=== PATIENT | female | born 1940 | race Asian ===

== ENCOUNTER 2016-07-31 10:48 | Emergency (ER) | payer MEDICARE, MEDICAID ==
[~2016-07-31] VITALS: Ht 165.1 cm; Wt 70.0 kg
[~2016-07-31 10:48] MED LIST: ALLO100T PO; AMLO2.5T PO; ANUSHCS PR; CIPR-278 PO; DSS100 PO; METR500 PO; RANO500T3 PO; VALS160T2 PO
[2016-07-31] MEDS ORDERED: AZIT250T6 PO (11:10)
[2016-07-31] MEDS ORDERED: FURO20 PO (11:10)
[2016-07-31] MEDS ORDERED: LOVA20 PO (11:10)
[2016-07-31] MEDS ORDERED: ALBUTEROL SULFATE 5 MG/ML 20 ML NEB SOLN [BULK] NEB ONE (12:15)
[2016-07-31] MEDS ORDERED: IPRATROPIUM BROMIDE 0.5 MG/2.5 ML NEB SOLUTION NEB ONE (12:15)
[2016-07-31 12:59] LABS: BASOPHILS % (AUTO) 0.3 % (0.0-2.0); EOSINOPHILS % (AUTO) 4.4 % (1.0-6.0); HEMATOCRIT 44.4 % (36-46); LYMPHOCYTES # (AUTO) 2.3 K/uL (1.0-4.8); LYMPHOCYTES % (AUTO) 39.1 % (22.0-44.0); MEAN CORPUSCULAR HEMOGLOBIN 29.5 pg (26.0-34.0); MEAN CORPUSCULAR HGB CONC 31.6 G/dL (31.0-37.0); MEAN CORPUSCULAR VOLUME 93 fL (80-100); MONOCYTES # (AUTO) 0.7 K/uL (0.1-1.0); NEUTROPHILS # (AUTO) 2.6 K/uL (1.8-7.7); NEUTROPHILS % (AUTO) 44.2 % (40.0-70.0); PLATELET COUNT (AUTO) 217 K/uL (150-450); RED BLOOD CELL COUNT(AUTO) 4.75 MIL/uL (4.00-5.20); RED CELL DISTRIBUTION WIDTH 14.5 % (11.5-14.5); WHITE BLOOD COUNT (AUTO) 5.8 K/uL (4.5-11.0)
[2016-07-31 13:07] LABS: ANION GAP 10 mmol/L (8-16); CARBON DIOXIDE 25 mmol/L (22-29); CHLORIDE 101 mmol/L (98-107); CREATININE 0.91 mg/dL (0.60-1.30); GLOMERULAR FILTR. RATE CALC 60 mL/min (>60); POTASSIUM 4.7 mmol/L (3.5-5.1); SODIUM SERUM 136 mmol/L (136-145); UREA NITROGEN, BLOOD 13 mg/dL (7-18)
[2016-07-31 13:29] LABS: B-TYPE NATRIURETIC PEPTIDE 35 pg/mL (0-100)
[2016-07-31 13:31] LABS: ALANINE AMINOTRANSFERASE 30 U/L (12-78); ALBUMIN 4.1 g/dL (3.4-5.0); ASPARTATE AMINOTRANSFERASE 31 U/L (15-37); BILIRUBIN,TOTAL 0.3 mg/dL (0.1-1.0); CREATINE KINASE, TOTAL 149 U/L (26-192); TOTAL PROTEIN, SERUM 8.3 g/dL (6.4-8.2)
[2016-07-31 13:32] LABS: INFLUENZA TYPE B NEGATIVE FOR TYPE B (NEGATIVE)
[2016-07-31 14:15] VITALS: BP 131/76
== END 2016-07-31 14:18 | disposition home or self-care (01) ==
LOC: EMS 10:49
DX: J06.9 Acute upper respiratory infection, unspecified (principal); J40 Bronchitis, not specified as acute or chronic; I25.10 Atherosclerotic heart disease of native coronary artery without angina pectoris; I11.9 Hypertensive heart disease without heart failure
CPT/HCPCS: 71020; 87804; 93005; 94640; 99285

== ENCOUNTER 2017-03-26 22:13 | Emergency (ER) | payer MEDICARE, MEDICAID ==
[~2017-03-26] VITALS: Ht 162.6 cm; Wt 75.9 kg
[~2017-03-26 22:13] MED LIST changes: -ALLO100T PO; -ANUSHCS PR; +AZIT250T9 PO; -CIPR-278 PO; -DSS100 PO; +FURO20 PO; +LOVA20 PO; -METR500 PO
[2017-03-26] MEDS ORDERED: AZIL1TAB3 PO (22:21)
[2017-03-26 22:59] LABS: BASOPHILS # (AUTO) 0.03 K/uL (0.00-0.20); BASOPHILS % (AUTO) 0.3 % (0.0-2.0); EOSINOPHILS # (AUTO) 0.09 K/uL (0.00-0.70); EOSINOPHILS % (AUTO) 0.95 % (1.0-6.0); HEMATOCRIT 41.7 % (36-46); HEMOGLOBIN 13.9 g/dL (12.0-16.0); LYMPHOCYTES # (AUTO) 2.2 K/uL (1.0-4.8); LYMPHOCYTES % (AUTO) 23.9 % (22.0-44.0); MEAN CORPUSCULAR HEMOGLOBIN 31.3 pg (26.0-34.0); MEAN CORPUSCULAR HGB CONC 33.4 G/dL (31.0-37.0); MEAN CORPUSCULAR VOLUME 94 fL (80-100); MONOCYTES % (AUTO) 11.2 % (2.0-9.0); NEUTROPHILS # (AUTO) 5.9 K/uL (1.8-7.7); NEUTROPHILS % (AUTO) 63.7 % (40.0-70.0); PLATELET COUNT (AUTO) 219 K/uL (150-450); RED BLOOD CELL COUNT(AUTO) 4.45 MIL/uL (4.00-5.20); RED CELL DISTRIBUTION WIDTH 14.6 % (11.5-14.5); WHITE BLOOD COUNT (AUTO) 9.3 K/uL (4.5-11.0)
[2017-03-26 23:06] LABS: APPEARANCE,URINE CLEAR (CLEAR); GLUCOSE, URINE (UA) NEGATIVE (NEGATIVE); KETONES,URINE NEGATIVE (NEGATIVE); LEUKOCYTE ESTERASE ,URINE TRACE (NEGATIVE); OCCULT BLOOD,URINE TRACE (NEGATIVE); PH,URINE 6.5 (5.0-8.0); PROTEIN,URINE NEGATIVE (NEGATIVE)
[2017-03-26 23:08] LABS: ADD UA MICROSCOPIC YES
[2017-03-26 23:17] LABS: SQUAMOUS EPITHELIAL CELL,UR Few /LPF (None Seen)
[2017-03-26 23:29] LABS: ALBUMIN 4.3 g/dL (3.4-5.0); BILIRUBIN,TOTAL 0.6 mg/dL (0.1-1.0); CALCIUM, TOTAL 9.2 mg/dL (8.8-10.5); CREATININE 1.09 mg/dL (0.60-1.30); POTASSIUM 3.8 mmol/L (3.5-5.1); TOTAL PROTEIN, SERUM 8.4 g/dL (6.4-8.2)
[2017-03-26] MEDS ORDERED: DONNATAL/LIDOCAINE/MAALOX 55 ML BOTTLE PO ONE (23:30)
[2017-03-27] MEDS ORDERED: SODIUM CHLORIDE 0.9% 1,000 ML IV ONE (01:00)
[2017-03-27] MEDS ORDERED: ONDANSETRON HCL 4 MG/2 ML VIAL IVP ONE (01:00)
[2017-03-27 02:27] VITALS: BP 154/74
== END 2017-03-27 02:42 | disposition home or self-care (01) ==
LOC: EMS 22:15
DX: K85.90 Acute pancreatitis without necrosis or infection, unspecified (principal); I25.10 Atherosclerotic heart disease of native coronary artery without angina pectoris; I10 Essential (primary) hypertension
CPT/HCPCS: 36415; 80053; 81001; 83690; 84484; 85025; 93005; 96374; 99285; J2405; J7030

== ENCOUNTER 2018-11-26 10:19 | Inpatient (IN) | payer MEDICARE, MEDICAID ==
[~2018-11-26] VITALS: Ht 162.6 cm; Wt 76.8 kg
[~2018-11-26 10:19] MED LIST changes: +ALLO100T PO; -AMLO2.5T PO; +AMLO2.5T4 PO; +AZIL1TAB3 PO; -AZIT250T9 PO; -FURO20 PO; -VALS160T2 PO
[2018-11-26] MEDS ORDERED: SODIUM CHLORIDE 0.9% 1,000 ML IV ONE ×3 (11:15→14:15)
[2018-11-26] MEDS ORDERED: ONDANSETRON HCL 4 MG/2 ML VIAL IVP ONE (11:15)
[2018-11-26 11:42] LABS: BASOPHILS % (AUTO) 0.2 % (0.0-2.0); EOSINOPHILS % (AUTO) 0 % (1.0-6.0); HEMATOCRIT 41.9 % (36-46); HEMOGLOBIN 13.5 g/dL (12.0-16.0); LYMPHOCYTES # (AUTO) 1.1 K/uL (1.0-4.8); LYMPHOCYTES % (AUTO) 12.3 % (22.0-44.0); MEAN CORPUSCULAR HEMOGLOBIN 30.8 pg (26.0-34.0); MEAN CORPUSCULAR HGB CONC 32.2 G/dL (31.0-37.0); MEAN CORPUSCULAR VOLUME 96 fL (80-100); MONOCYTES # (AUTO) 0.3 K/uL (0.1-1.0); MONOCYTES % (AUTO) 3.2 % (2.0-9.0); NEUTROPHILS # (AUTO) 7.5 K/uL (1.8-7.7); NEUTROPHILS % (AUTO) 84.3 % (40.0-70.0); PLATELET COUNT (AUTO) 169 K/uL (150-450); RED BLOOD CELL COUNT(AUTO) 4.37 MIL/uL (4.00-5.20)
[2018-11-26 12:00] LABS: CALCIUM, TOTAL 9.1 mg/dL (8.8-10.5); CREATININE 1.21 mg/dL (0.60-1.30); POTASSIUM 4.2 mmol/L (3.5-5.1)
[2018-11-26 12:03] LABS: ALBUMIN 4.1 g/dL (3.4-5.0); BILIRUBIN,TOTAL 0.5 mg/dL (0.1-1.0); TOTAL PROTEIN, SERUM 7.5 g/dL (6.4-8.2)
[2018-11-26 12:43] LABS: APPEARANCE,URINE CLEAR (CLEAR); BILIRUBIN,URINE NEGATIVE (NEGATIVE); GLUCOSE, URINE (UA) NEGATIVE (NEGATIVE); KETONES,URINE NEGATIVE (NEGATIVE); LEUKOCYTE ESTERASE ,URINE NEGATIVE (NEGATIVE); NITRATE,URINE NEGATIVE (NEGATIVE); OCCULT BLOOD,URINE NEGATIVE (NEGATIVE); PH,URINE 6.5 (5.0-8.0); PROTEIN,URINE NEGATIVE (NEGATIVE); UROBILINOGEN,URINE 0.2 mg/dL (<=1.0)
[2018-11-26] MEDS ORDERED: KETOROLAC TROMETHAMINE 30 MG/ML VIAL IVP ONE (13:30)
[2018-11-26] MEDS ORDERED: ACETAMINOPHEN 325 MG TABLET PO PRN (14:15)
[2018-11-26] MEDS: AmLODIPine BESYLATE 5 MG TABLET PO SCH (15:12)
[2018-11-26] MEDS ORDERED: HEPARIN SODIUM,PORCINE 5,000 UNITS/ML VIAL SQ SCH (16:00)
[2018-11-26 20:35] VITALS: BP 150/74
[2018-11-27] VITALS (7 sets, daily range): BP systolic 125–159; BP diastolic 53–75
[2018-11-27 06:51] LABS: BASOPHILS % (AUTO) 0.2 % (0.0-2.0); EOSINOPHILS % (AUTO) 0.8 % (1.0-6.0); HEMATOCRIT 38.2 % (36-46); HEMOGLOBIN 12.6 g/dL (12.0-16.0); LYMPHOCYTES # (AUTO) 1.5 K/uL (1.0-4.8); LYMPHOCYTES % (AUTO) 16.8 % (22.0-44.0); MEAN CORPUSCULAR HEMOGLOBIN 31.3 pg (26.0-34.0); MEAN CORPUSCULAR HGB CONC 32.9 G/dL (31.0-37.0); MEAN CORPUSCULAR VOLUME 95 fL (80-100); MONOCYTES # (AUTO) 0.9 K/uL (0.1-1.0); MONOCYTES % (AUTO) 9.8 % (2.0-9.0); NEUTROPHILS # (AUTO) 6.5 K/uL (1.8-7.7); NEUTROPHILS % (AUTO) 72.4 % (40.0-70.0); PLATELET COUNT (AUTO) 165 K/uL (150-450); RED BLOOD CELL COUNT(AUTO) 4.02 MIL/uL (4.00-5.20); RED CELL DISTRIBUTION WIDTH 13.7 % (11.5-14.5)
[2018-11-27 07:28] LABS: ALBUMIN 3.5 g/dL (3.4-5.0); BILIRUBIN,TOTAL 0.6 mg/dL (0.1-1.0); CALCIUM, TOTAL 8.3 mg/dL (8.8-10.5); CREATININE 0.94 mg/dL (0.60-1.30); POTASSIUM 3.4 mmol/L (3.5-5.1); TOTAL PROTEIN, SERUM 6.6 g/dL (6.4-8.2)
[2018-11-27] MEDS ORDERED: ASPIRIN 81 MG CHEWABLE TABLET PO SCH (09:00)
[2018-11-27] MEDS: FAMOTIDINE 20 MG TABLET PO SCH (09:52)
[2018-11-27] MEDS: AmLODIPine BESYLATE 5 MG TABLET PO SCH (09:53)
[2018-11-27] MEDS ORDERED: MAGNESIUM SULFATE 2 GM/WATER 50 ML IV PRN (10:30)
[2018-11-27] MEDS ORDERED: POTASSIUM CHLORIDE 10% 40 MEQ/30 ML LIQUID UDCUP PO ONE (10:30)
[2018-11-27] MEDS ORDERED: MAGNESIUM SULFATE 4 GM/WATER 100 ML IV PRN (10:30)
[2018-11-27] MEDS ORDERED: MAGNESIUM OXIDE 400 MG TABLET PO PRN (10:30)
[2018-11-27] MEDS ORDERED: PEG 3350/NA SULF,BICARB,CL/KCL 4000 ML SOLUTION PO ONE (11:00)
[2018-11-27 15:59] LABS: HEMATOCRIT 38.8 % (36-46); HEMOGLOBIN 12.6 g/dL (12.0-16.0)
[2018-11-27 18:28] LABS: C.DIFF GDH ANTIGEN, Stool Negative (Negative)
[2018-11-27 18:29] LABS: C.DIFF TOXINS A&B, Stool Negative (Negative)
[2018-11-28 04:55] VITALS: BP 113/58
[2018-11-28] MEDS: AmLODIPine BESYLATE 5 MG TABLET PO SCH (09:00)
[2018-11-28] MEDS: FAMOTIDINE 20 MG TABLET PO SCH (09:00)
[2018-11-28] MEDS ORDERED: EPINEPHrine 1:10,000 [1 MG/10 ML] SYRINGE ONE (09:11)
[2018-11-28] MEDS ORDERED: SODIUM CHLORIDE 0.9% 1,000 ML IV ONE ×2 (09:12→09:13)
[2018-11-28 11:59] VITALS: BP 123/71
[2018-11-28] MEDS ORDERED: LIDOCAINE/PF 2% 5 ML VIAL INJ ONE (12:00)
[2018-11-28] MEDS ORDERED: GLYCOPYRROLATE 0.2 MG/ML VIAL IM ONE (12:00)
[2018-11-28] MEDS ORDERED: PROPOFOL 1% 20 ML VIAL IVP ONE (12:00)
[2018-11-28 16:18] VITALS: BP 111/45
[2018-11-28] MEDS ORDERED: FAMO20 PO (17:17)
[2018-12-01 00:05] LABS: OVA AND PARASITES EXAM Final report
== END 2018-11-28 18:25 | disposition home or self-care (01) | DRG 378 ==
LOC: EMS 10:19 → 5S 19:58
PROVIDERS: ADMIT Internal Medicine; ATTEND Internal Medicine
PROC: 0DBL8ZX Excision of Transverse Colon, Via Natural or Artificial Opening Endoscopic, Diagnostic (ICD-10-PCS; principal; 2018-11-28 10:00)
DX: K62.5 Hemorrhage of anus and rectum (principal); K55.9 Vascular disorder of intestine, unspecified; K52.9 Noninfective gastroenteritis and colitis, unspecified; I25.10 Atherosclerotic heart disease of native coronary artery without angina pectoris; E78.5 Hyperlipidemia, unspecified; I10 Essential (primary) hypertension; E78.00 Pure hypercholesterolemia, unspecified; M19.90 Unspecified osteoarthritis, unspecified site; M10.9 Gout, unspecified; E86.0 Dehydration; E87.6 Hypokalemia; I49.8 Other specified cardiac arrhythmias; N28.1 Cyst of kidney, acquired; K76.89 Other specified diseases of liver; K76.0 Fatty (change of) liver, not elsewhere classified; K80.20 Calculus of gallbladder without cholecystitis without obstruction; Z82.49 Family history of ischemic heart disease and other diseases of the circulatory system; Z98.891 History of uterine scar from previous surgery; Z79.82 Long term (current) use of aspirin
CPT/HCPCS: 74176; 83735; 85014; 85018; 87045; 87177; 87324; 87449; 88305; 93005; J0171; J1885; J2405; J2704; J3490; J7030

== ENCOUNTER 2019-04-23 16:56 | Emergency (ER) | payer MEDICARE, MEDICAID ==
[~2019-04-23] VITALS: Ht 165.1 cm; Wt 90.9 kg
[~2019-04-23 16:56] MED LIST changes: +FAMO20 PO
[2019-04-23 17:21] LABS: GLUCOSE,POINT OF CARE 98 MG/DL (70-110)
[2019-04-23] MEDS ORDERED: IOVERSOL 320 MG/ML 100 ML VIAL ONE (18:16)
[2019-04-23] MEDS ORDERED: SODIUM CHLORIDE 0.9% 0 ML ONE (18:16)
[2019-04-23 18:32] LABS: BASOPHILS % (AUTO) 0.6 % (0.0-2.0); EOSINOPHILS % (AUTO) 1.2 % (1.0-6.0); HEMATOCRIT 38.6 % (36-46); LYMPHOCYTES % (AUTO) 21.2 % (22.0-44.0); MEAN CORPUSCULAR HEMOGLOBIN 31.8 pg (26.0-34.0); MEAN CORPUSCULAR HGB CONC 33.8 G/dL (31.0-37.0); MEAN CORPUSCULAR VOLUME 94 fL (80-100); MONOCYTES # (AUTO) 0.9 K/uL (0.1-1.0); MONOCYTES % (AUTO) 9.4 % (2.0-9.0); NEUTROPHILS # (AUTO) 6.4 K/uL (1.8-7.7); NEUTROPHILS % (AUTO) 67.6 % (40.0-70.0); PLATELET COUNT (AUTO) 221 K/uL (150-450); RED CELL DISTRIBUTION WIDTH 14.4 % (11.5-14.5)
[2019-04-23 18:49] LABS: CALCIUM, TOTAL 9.1 mg/dL (8.8-10.5); CREATININE 0.98 mg/dL (0.60-1.30); POTASSIUM 4.6 mmol/L (3.5-5.1)
[2019-04-23 18:55] LABS: ALBUMIN 4.2 g/dL (3.4-5.0); BILIRUBIN,TOTAL 0.4 mg/dL (0.1-1.0); TOTAL PROTEIN, SERUM 8.1 g/dL (6.4-8.2)
[2019-04-23] MEDS ORDERED: AMOX TR/POT CLAV 875 MG/125 MG TABLET PO ONE (22:30)
[2019-04-23 22:40] VITALS: BP 139/84
== END 2019-04-23 22:54 | disposition home or self-care (01) ==
LOC: EMS 16:57
DX: K11.20 Sialoadenitis, unspecified (principal); E78.00 Pure hypercholesterolemia, unspecified; I10 Essential (primary) hypertension; I25.10 Atherosclerotic heart disease of native coronary artery without angina pectoris; M19.90 Unspecified osteoarthritis, unspecified site; Z79.899 Other long term (current) drug therapy
CPT/HCPCS: 70490; J7050

== ENCOUNTER 2023-05-10 08:12 | Emergency (ER) | payer MEDICARE, MEDICAID ==
[~2023-05-10] VITALS: Ht 160 cm; Wt 68.2 kg
[~2023-05-10 08:12] MED LIST changes: +ALLO-97 PO; -ALLO100T PO; -AMLO2.5T4 PO; +AMLO2.5T96 PO; -LOVA20 PO; +LOVA20TA73 PO; +RANO500T27 PO; -RANO500T3 PO
[2023-05-10 08:20] VITALS: BP 154/66; PULSE 83; RESP 18; TEMP 98.3
[2023-05-10] MEDS ORDERED: LOSA100T59 PO (08:23)
[2023-05-10] MEDS ORDERED: METF-1211 PO (08:23)
[2023-05-10] MEDS ORDERED: HYDR25TA PO (08:23)
[2023-05-10] MEDS ORDERED: PRAV40TA4 PO (08:23)
[2023-05-10 09:06] LABS: COVID AG,FIA SOURCE NASAL SWAB
[2023-05-10 09:29] LABS: INFLUENZA TYPE A NEGATIVE FOR TYPE A (NEGATIVE); INFLUENZA TYPE B NEGATIVE FOR TYPE B (NEGATIVE)
[2023-05-10 09:30] LABS: RESPIRATORY SYNCYTIAL VIRS,FIA POSITIVE (Negative)
[2023-05-10 09:36] LABS: SARS-COV2 (COVID) ANTIGEN,FIA Positive (Negative)
[2023-05-10] MEDS ORDERED: NIRM1TAB10 PO (10:36)
== END 2023-05-10 10:49 | disposition home or self-care (01) ==
LOC: EMS 08:12
DX: U07.1 COVID-19 (principal); B97.4 Respiratory syncytial virus as the cause of diseases classified elsewhere; M19.90 Unspecified osteoarthritis, unspecified site; E11.9 Type 2 diabetes mellitus without complications; E78.00 Pure hypercholesterolemia, unspecified; I25.10 Atherosclerotic heart disease of native coronary artery without angina pectoris; I10 Essential (primary) hypertension; Z98.890 Other specified postprocedural states
CPT/HCPCS: 71045; 82962; 87420; 87804; 99284

== ENCOUNTER 2024-01-26 08:04 | Emergency (ER) | payer MEDICARE, MEDICAID ==
[~2024-01-26] VITALS: Ht 165.1 cm; Wt 72.7 kg
[~2024-01-26 08:04] MED LIST changes: -AZIL1TAB3 PO; -FAMO20 PO; +HYDR25TA PO; +LOSA100T59 PO; -LOVA20TA73 PO; +METF-1211 PO; +NIRM1TAB10 PO; +PRAV40TA4 PO; -RANO500T27 PO
[2024-01-26] MEDS ORDERED: ALLO100T PO (08:09)
[2024-01-26] MEDS ORDERED: AMLO10TA55 PO (08:09)
[2024-01-26 09:27] VITALS: TEMP 99.1
[2024-01-26] MEDS ORDERED: IBUP-1492 PO (09:29)
[2024-01-26] MEDS ORDERED: CYCL-448 PO (09:29)
[2024-01-26 09:30] VITALS: BP 154/70; PULSE 68; RESP 16; O2SAT 97
[2024-01-26] MEDS: LIDOCAINE 5% TRANSDERMAL PATCH TD ONE (09:33)
[2024-01-26] MEDS: KETOROLAC TROMETHAMINE 30 MG/ML VIAL IM ONE (09:34)
== END 2024-01-26 09:45 | disposition home or self-care (01) ==
LOC: EMS 08:04
DX: M54.42 Lumbago with sciatica, left side (principal); E11.42 Type 2 diabetes mellitus with diabetic polyneuropathy; I10 Essential (primary) hypertension; E78.00 Pure hypercholesterolemia, unspecified; Z79.899 Other long term (current) drug therapy
CPT/HCPCS: 99283; 82962; 96372; J1885

== ENCOUNTER 2024-03-24 10:56 | Inpatient (IN) | payer MEDICARE, MEDICAID ==
[~2024-03-24] VITALS: Ht 162.6 cm; Wt 71.2 kg
[~2024-03-24 10:56] MED LIST changes: -ALLO-97 PO; +ALLO100T PO; +AMLO10TA55 PO; -AMLO2.5T96 PO; +CYCL-448 PO; +IBUP-1492 PO; -NIRM1TAB10 PO
[2024-03-24 11:29] LABS: COVID AG,FIA SOURCE NASAL SWAB
[2024-03-24 12:41] LABS: SARS-COV2 (COVID) ANTIGEN,FIA Negative (Negative)
[2024-03-24 12:42] LABS: INFLUENZA TYPE A NEGATIVE FOR TYPE A (NEGATIVE); INFLUENZA TYPE B NEGATIVE FOR TYPE B (NEGATIVE)
[2024-03-24] MEDS: ACETAMINOPHEN 500 MG TABLET PO ONE (14:36)
[2024-03-24] MEDS: ASPIRIN 325 MG TABLET PO ONE (14:37)
[2024-03-24 14:39] LABS: APPEARANCE,URINE CLEAR (CLEAR); BILIRUBIN,URINE NEGATIVE (NEGATIVE); COLOR,URINE LIGHT YELLOW (YELLOW); GLUCOSE, URINE (UA) NEGATIVE (NEGATIVE); KETONES,URINE NEGATIVE (NEGATIVE); LEUKOCYTE ESTERASE ,URINE SMALL (NEGATIVE); NITRATE,URINE NEGATIVE (NEGATIVE); OCCULT BLOOD,URINE NEGATIVE (NEGATIVE); PH,URINE 6.5 (5.0-8.0); PROTEIN,URINE NEGATIVE (NEGATIVE); SPECIFIC GRAVITIY, URINE 1.015 (1.003-1.030); UROBILINOGEN,URINE <=1.0 mg/dL (<=1.0)
[2024-03-24] MEDS: MethylPREDNISolone SOD SUCC 125 MG/2 ML VIAL IVP ONE (14:39)
[2024-03-24 14:53] LABS: RBC,URINE None Seen /HPF (0-2)
[2024-03-24 14:54] LABS: BACTERIA,URINE None Seen /HPF (None Seen); SQUAMOUS EPITHELIAL CELL,UR Rare /LPF (None Seen)
[2024-03-24] MEDS: IPRATROPIUM BROMIDE 0.5 MG/2.5 ML NEB SOLUTION NEB ONE (14:59)
[2024-03-24] MEDS: ALBUTEROL SULFATE 2.5 MG/0.5 ML NEB SOLUTION NEB ONE (14:59)
[2024-03-24 15:05] VITALS: PULSE 64; PULSE 65; RESP 16; O2SAT 99
[2024-03-24 15:22] VITALS: PULSE 58; RESP 17; O2SAT 100
[2024-03-24 15:29] LABS: BASOPHILS % (AUTO) 0.7 % (0.0-2.0); EOSINOPHILS % (AUTO) 0.9 % (1.0-6.0); HEMATOCRIT 38.9 % (36-46); HEMOGLOBIN 12.8 g/dL (12.0-16.0); LYMPHOCYTES # (AUTO) 2.5 K/uL (1.0-4.8); LYMPHOCYTES % (AUTO) 26.3 % (22.0-44.0); MEAN CORPUSCULAR HEMOGLOBIN 30.7 pg (26.0-34.0); MEAN CORPUSCULAR HGB CONC 32.8 G/dL (31.0-37.0); MEAN CORPUSCULAR VOLUME 94 fL (80-100); NEUTROPHILS # (AUTO) 5.9 K/uL (1.8-7.7); NEUTROPHILS % (AUTO) 62.1 % (40.0-70.0); PLATELET COUNT (AUTO) 219 K/uL (150-450); RED BLOOD CELL COUNT(AUTO) 4.15 MIL/uL (4.00-5.20); RED CELL DISTRIBUTION WIDTH 13.8 % (11.5-14.5); WHITE BLOOD COUNT (AUTO) 9.6 K/uL (4.5-11.0)
[2024-03-24 15:37] LABS: ANION GAP 6 mmol/L (8-16); CALCIUM, TOTAL 9.1 mg/dL (8.8-10.5); CARBON DIOXIDE 30 mmol/L (22-29); CHLORIDE 102 mmol/L (98-107); CREATININE 1.21 mg/dL (0.60-1.30); GLOMERULAR FILTR. RATE CALC 42 mL/min (>60); GLUCOSE,RANDOM 104 mg/dL (70-110); POTASSIUM 3.7 mmol/L (3.5-5.1); SODIUM SERUM 138 mmol/L (136-145); UREA NITROGEN, BLOOD 36 mg/dL (7-18)
[2024-03-24 15:38] LABS: LIPASE 68 U/L (16-77)
[2024-03-24 15:45] LABS: TROPONIN I-HIGH SENSITIVITY 21 ng/L (<51)
[2024-03-24 15:48] LABS: B-TYPE NATRIURETIC PEPTIDE 108 pg/mL (0-100); LACTIC ACID 1.2 mmol/L (0.4-2.0)
[2024-03-24] MEDS: AmLODIPine BESYLATE 10 MG TABLET PO ONE (17:02)
[2024-03-24 18:13] VITALS: BP 147/68; PULSE 78; RESP 18; TEMP 98; O2SAT 97
[2024-03-24 19:43] VITALS: BP 148/78; PULSE 79; RESP 18; TEMP 98.5; O2SAT 100
[2024-03-25] VITALS (9 sets, daily range): BP systolic 127–153; BP diastolic 53–77; PULSE 61–78; RESP 17–20; TEMP 97.5–98.1; O2SAT 95–98
[2024-03-25] MEDS ORDERED: INSULIN LISPRO 100 UNITS/ML SQ PRN (00:15)
[2024-03-25] MEDS ORDERED: DEXTROSE 50%-WATER 25 GM/50 ML SYRINGE IVP PRN ×2 (00:15→04:30)
[2024-03-25] MEDS: ALBUTEROL SULFATE 2.5 MG/0.5 ML NEB SOLUTION NEB PRN (01:04)
[2024-03-25] MEDS: IPRATROPIUM BROMIDE 0.5 MG/2.5 ML NEB SOLUTION NEB PRN (01:05)
[2024-03-25 01:12] LABS: TROPONIN I-HIGH SENSITIVITY 17 ng/L (<51)
[2024-03-25] MEDS: BENZONATATE 100 MG CAPSULE PO PRN (01:27)
[2024-03-25] MEDS: MELATONIN 3 MG TABLET PO ONE (01:27)
[2024-03-25] MEDS ORDERED: MAGNESIUM HYDROXIDE SUSPENSION 30 ML UDCUP PO PRN (04:30)
[2024-03-25] MEDS ORDERED: IBUPROFEN 600 MG TABLET PO PRN (04:30)
[2024-03-25] MEDS ORDERED: ONDANSETRON HCL 4 MG/2 ML VIAL IVP PRN (04:30)
[2024-03-25] MEDS ORDERED: IPRATROPIUM BROMIDE 0.5 MG/2.5 ML NEB SOLUTION NEB PRN (04:30)
[2024-03-25] MEDS ORDERED: ZOLPIDEM TARTRATE 5 MG TABLET PO PRN (04:30)
[2024-03-25] MEDS ORDERED: ALBUTEROL SULFATE 2.5 MG/0.5 ML NEB SOLUTION NEB PRN (04:30)
[2024-03-25] MEDS ORDERED: BISACODYL 10 MG RECTAL RECTAL SUPPOSITORY PR PRN (04:30)
[2024-03-25] MEDS ORDERED: MORPHINE SULFATE 2 MG/ML SYRINGE IVP PRN (04:30)
[2024-03-25] MEDS ORDERED: CYCLOBENZAPRINE HCL 10 MG TABLET PO PRN (04:30)
[2024-03-25] MEDS ORDERED: HYDROCODONE/ACETAMINOPHEN 5-325 MG TABLET PO PRN (04:30)
[2024-03-25] MEDS ORDERED: SODIUM CHLORIDE 0.9% 500 ML IV ONE (06:17)
[2024-03-25] MEDS: CefTRIAXone 1 GM/DEXTROSE 50 ML IV SCH (06:30)
[2024-03-25] MEDS: INSULIN LISPRO 100 UNITS/ML SQ PRN (06:37)
[2024-03-25] MEDS: PANTOPRAZOLE SODIUM 40 MG DR TABLET PO SCH (08:23)
[2024-03-25] MEDS: ALLOPURINOL 100 MG TABLET PO SCH (08:27)
[2024-03-25] MEDS: HYDROCHLOROTHIAZIDE 25 MG TABLET PO SCH (08:28)
[2024-03-25] MEDS: HEPARIN SODIUM,PORCINE 5,000 UNITS/ML VIAL SQ SCH (08:28)
[2024-03-25] MEDS: MetFORMIN HCL 500 MG TABLET PO SCH (08:28)
[2024-03-25] MEDS: LOSARTAN POTASSIUM 50 MG TABLET PO SCH (08:28)
[2024-03-25] MEDS: AmLODIPine BESYLATE 10 MG TABLET PO SCH (08:28)
[2024-03-25] MEDS ORDERED: BENZONATATE 100 MG CAPSULE PO PRN (12:15)
[2024-03-25] MEDS: AZITHROMYCIN 500 MG/NS 250 ML IV SCH (13:21)
[2024-03-25] MEDS: ALBUTEROL SULFATE 2.5 MG/0.5 ML NEB SOLUTION NEB SCH (14:00)
[2024-03-25] MEDS: ACETAMINOPHEN 325 MG TABLET PO PRN (14:12)
[2024-03-25] MEDS ORDERED: 0.9% SODIUM CHLORIDE 5 ML NEB SOLUTION NEB ONE (19:40)
[2024-03-25] MEDS: PRAVASTATIN SODIUM 40 MG TABLET PO SCH (19:55)
[2024-03-25] MEDS: MELATONIN 3 MG TABLET PO SCH (19:56)
[2024-03-25 23:47] LABS: GLUCOMETER DEV NAME(LOC) 5S.2D; GLUCOSE,POINT OF CARE 102 MG/DL (70-110)
[2024-03-25 23:47] LABS: GLUCOMETER DEV NAME(LOC) 5N.2C; GLUCOSE,POINT OF CARE 271 MG/DL (70-110)
[2024-03-25 23:47] LABS: GLUCOMETER DEV NAME(LOC) 5S.2D; GLUCOSE,POINT OF CARE 163 MG/DL (70-110)
[2024-03-26] VITALS (13 sets, daily range): BP systolic 128–160; BP diastolic 54–80; PULSE 59–86; RESP 16–20; TEMP 97.4–98.1; O2SAT 94–100
[2024-03-26 01:16] LABS: GLUCOMETER DEV NAME(LOC) 5N.1D; GLUCOSE,POINT OF CARE 172 MG/DL (70-110)
[2024-03-26 01:16] LABS: GLUCOMETER DEV NAME(LOC) 5N.1D; GLUCOSE,POINT OF CARE 177 MG/DL (70-110)
[2024-03-26 06:24] LABS: BASOPHILS % (AUTO) 0.2 % (0.0-2.0); EOSINOPHILS % (AUTO) 0 % (1.0-6.0); HEMATOCRIT 34.7 % (36-46); HEMOGLOBIN 11.6 g/dL (12.0-16.0); LYMPHOCYTES # (AUTO) 2.1 K/uL (1.0-4.8); LYMPHOCYTES % (AUTO) 12.9 % (22.0-44.0); MEAN CORPUSCULAR HEMOGLOBIN 30.8 pg (26.0-34.0); MEAN CORPUSCULAR HGB CONC 33.4 G/dL (31.0-37.0); MEAN CORPUSCULAR VOLUME 92 fL (80-100); MONOCYTES # (AUTO) 1.3 K/uL (0.1-1.0); MONOCYTES % (AUTO) 7.9 % (2.0-9.0); NEUTROPHILS # (AUTO) 12.9 K/uL (1.8-7.7); PLATELET COUNT (AUTO) 213 K/uL (150-450); RED BLOOD CELL COUNT(AUTO) 3.76 MIL/uL (4.00-5.20); RED CELL DISTRIBUTION WIDTH 13.7 % (11.5-14.5); WHITE BLOOD COUNT (AUTO) 16.3 K/uL (4.5-11.0)
[2024-03-26 06:46] LABS: CALCIUM, TOTAL 8.7 mg/dL (8.8-10.5); CREATININE 1.33 mg/dL (0.60-1.30); POTASSIUM 3.7 mmol/L (3.5-5.1)
[2024-03-26 06:58] LABS: MAGNESIUM 2.4 mg/dL (1.80-2.40)
[2024-03-27 02:33] VITALS: BP 133/66; PULSE 60; RESP 16; TEMP 97.6; O2SAT 96
[2024-03-27 03:06] VITALS: BP 154/61; PULSE 62; RESP 18; TEMP 98.1; O2SAT 97
[2024-03-27 04:26] LABS: GLUCOMETER DEV NAME(LOC) 5N.2C; GLUCOSE,POINT OF CARE 106 MG/DL (70-110)
[2024-03-27 04:26] LABS: GLUCOMETER DEV NAME(LOC) 5S.2D; GLUCOSE,POINT OF CARE 115 MG/DL (70-110)
[2024-03-27 04:26] LABS: GLUCOMETER DEV NAME(LOC) 5S.2D; GLUCOSE,POINT OF CARE 85 MG/DL (70-110)
[2024-03-27 04:30] LABS: GLUCOMETER DEV NAME(LOC) 5S.1D; GLUCOSE,POINT OF CARE 146 MG/DL (70-110)
[2024-03-27] MEDS ORDERED: SODIUM CHLORIDE 0.9% 500 ML IV ONE (06:00)
[2024-03-27 08:58] VITALS: BP 154/75; PULSE 59; RESP 18; TEMP 98.3; O2SAT 99
[2024-03-27] MEDS ORDERED: CEFD300C18 PO (09:22)
[2024-03-27] MEDS ORDERED: AZIT-164 PO (09:22)
[2024-03-27] MEDS ORDERED: BENZ-227 PO (09:23)
[2024-03-27] MEDS ORDERED: LOSA-382 PO (10:43)
[2024-03-27 18:25] LABS: GLUCOMETER DEV NAME(LOC) 6S.2; GLUCOSE,POINT OF CARE 90 MG/DL (70-110)
== END 2024-03-27 13:35 | disposition home health service (06) | DRG 177 ==
LOC: EMS 10:57 → EDH 16:45 → 5S 18:02 → 6S 03-27 02:43
PROVIDERS: ADMIT Hospitalist; ATTEND Hospitalist
DX: J15.69 Pneumonia due to other Gram-negative bacteria (principal); J96.20 Acute and chronic respiratory failure, unspecified whether with hypoxia or hypercapnia; E78.00 Pure hypercholesterolemia, unspecified; Z20.822 Contact with and (suspected) exposure to COVID-19; D72.829 Elevated white blood cell count, unspecified; E11.22 Type 2 diabetes mellitus with diabetic chronic kidney disease; I12.9 Hypertensive chronic kidney disease with stage 1 through stage 4 chronic kidney disease, or unspecified chronic kidney disease; M10.9 Gout, unspecified; I25.10 Atherosclerotic heart disease of native coronary artery without angina pectoris; N18.30 Chronic kidney disease, stage 3 unspecified; Z82.49 Family history of ischemic heart disease and other diseases of the circulatory system; Z95.0 Presence of cardiac pacemaker
CPT/HCPCS: 71045; 80048; 81001; 82962; 83605; 83690; 83735; 83880; 84484; 85025; 87070; 87804; 93005; 93306; 94640; 97116; 97162; 99285; J0456; J0696; J1644; J2919; J7040; 36415-L1; 36415-TC; J7613

== ENCOUNTER 2024-03-29 08:33 | Emergency (ER) | payer MEDICARE, MEDICAID ==
[~2024-03-29] VITALS: Ht 162.6 cm; Wt 71.8 kg
[~2024-03-29 08:33] MED LIST changes: +AZIT-164 PO; +BENZ-227 PO; +CEFD300C18 PO; -CYCL-448 PO; -HYDR25TA PO; -IBUP-1492 PO; +LOSA-382 PO; -LOSA100T59 PO
[2024-03-29 08:41] VITALS: BP 148/60; PULSE 68; RESP 20; TEMP 98.6; O2SAT 99
[2024-03-29 09:01] LABS: GLUCOMETER DEV NAME(LOC) ERT.6; GLUCOSE,POINT OF CARE 197 MG/DL (70-110)
[2024-03-29] MEDS: ACETAMINOPHEN/CODEINE 300-30 MG TABLET PO ONE (09:36)
[2024-03-29 09:42] LABS: BASOPHILS % (AUTO) 0.5 % (0.0-2.0); EOSINOPHILS % (AUTO) 1.7 % (1.0-6.0); HEMATOCRIT 39.5 % (36-46); LYMPHOCYTES # (AUTO) 1.6 K/uL (1.0-4.8); LYMPHOCYTES % (AUTO) 18.6 % (22.0-44.0); MEAN CORPUSCULAR HGB CONC 32.9 G/dL (31.0-37.0); MEAN CORPUSCULAR VOLUME 94 fL (80-100); MONOCYTES # (AUTO) 0.7 K/uL (0.1-1.0); MONOCYTES % (AUTO) 8.1 % (2.0-9.0); NEUTROPHILS # (AUTO) 6.1 K/uL (1.8-7.7); NEUTROPHILS % (AUTO) 71.1 % (40.0-70.0); PLATELET COUNT (AUTO) 182 K/uL (150-450); RED BLOOD CELL COUNT(AUTO) 4.19 MIL/uL (4.00-5.20); WHITE BLOOD COUNT (AUTO) 8.5 K/uL (4.5-11.0)
[2024-03-29 09:55] LABS: CREATININE 1.22 mg/dL (0.60-1.30); POTASSIUM 4.6 mmol/L (3.5-5.1)
[2024-03-29] MEDS ORDERED: ACET-2080 PO (10:41)
[2024-03-30] MEDS ORDERED: CYCL-448 PO (20:41)
== END 2024-03-29 11:05 | disposition home or self-care (01) ==
LOC: EMS 08:37
DX: J18.9 Pneumonia, unspecified organism (principal); M79.662 Pain in left lower leg; E11.9 Type 2 diabetes mellitus without complications; I10 Essential (primary) hypertension; E78.00 Pure hypercholesterolemia, unspecified; Z79.899 Other long term (current) drug therapy
CPT/HCPCS: 80048; 82962; 85025; 93971; 99284

== ENCOUNTER 2024-03-30 14:13 | Emergency (ER) | payer MEDICARE, MEDICAID ==
[~2024-03-30] VITALS: Ht 157.5 cm; Wt 81.8 kg
[~2024-03-30 14:13] MED LIST changes: +ACET-2080 PO; -AZIT-164 PO; -BENZ-227 PO
[2024-03-30 14:56] VITALS: TEMP 98.6
[2024-03-30] MEDS: KETOROLAC TROMETHAMINE 30 MG/ML VIAL IM ONE (18:37)
[2024-03-30] MEDS: LIDOCAINE 5% TRANSDERMAL PATCH TD ONE ×2 (18:37→21:03)
[2024-03-30 19:00] VITALS: BP 132/80; PULSE 70; RESP 18; O2SAT 98
[2024-03-30] MEDS: CYCLOBENZAPRINE HCL 10 MG TABLET PO ONE (19:13)
[2024-03-30] MEDS ORDERED: CYCL-448 PO (20:41)
== END 2024-03-30 21:43 | disposition home or self-care (01) ==
LOC: EMS 14:13
DX: M19.90 Unspecified osteoarthritis, unspecified site (principal); E11.9 Type 2 diabetes mellitus without complications; E78.00 Pure hypercholesterolemia, unspecified; I10 Essential (primary) hypertension; I25.10 Atherosclerotic heart disease of native coronary artery without angina pectoris; Z79.899 Other long term (current) drug therapy
CPT/HCPCS: 99284; 82962; 96372; J1885

== ENCOUNTER 2025-03-19 10:30 | Emergency (ER) | payer MEDICARE, MEDICAID ==
[~2025-03-19] VITALS: Ht 162.6 cm; Wt 73.0 kg
[~2025-03-19 10:30] MED LIST changes: -ALLO100T PO; +AMLO-257 PO; -AMLO10TA55 PO; +CYCL-448 PO; +PRAV-59 PO; -PRAV40TA4 PO
[2025-03-19 10:46] LABS: COVID AG,FIA SOURCE NASAL SWAB
[2025-03-19 11:09] LABS: INFLUENZA TYPE A NEGATIVE FOR TYPE A (NEGATIVE); INFLUENZA TYPE B NEGATIVE FOR TYPE B (NEGATIVE); SARS-COV2 (COVID) ANTIGEN,FIA Negative (Negative)
[2025-03-19] MEDS ORDERED: OXYM15SP63 NASAL (13:17)
[2025-03-19] MEDS ORDERED: AMOX500C2 PO (13:17)
[2025-03-19 13:31] VITALS: BP 128/82; PULSE 74; RESP 16; TEMP 98.205296; O2SAT 99
== END 2025-03-19 13:50 | disposition home or self-care (01) ==
LOC: EMS 10:30
DX: J32.9 Chronic sinusitis, unspecified (principal); E78.00 Pure hypercholesterolemia, unspecified; I10 Essential (primary) hypertension; I25.10 Atherosclerotic heart disease of native coronary artery without angina pectoris; J45.909 Unspecified asthma, uncomplicated; M10.9 Gout, unspecified; M19.90 Unspecified osteoarthritis, unspecified site; Z79.899 Other long term (current) drug therapy; Z20.822 Contact with and (suspected) exposure to COVID-19
CPT/HCPCS: 87804; 99283